=== PATIENT | male | born 1995 | race Two or more races ===

== ENCOUNTER 2020-04-16 06:45 | Emergency (ER) | payer OTHER ==
[~2020-04-16] VITALS: Ht 182.9 cm; Wt 139.7 kg
== END 2020-04-16 12:56 | disposition home or self-care (01) ==
LOC: ER 06:45
DX: U07.1 COVID-19 (principal); R50.9 Fever, unspecified

== ENCOUNTER 2020-04-18 22:03 | Inpatient (IN) | payer OTHER ==
[~2020-04-18] VITALS: Ht 193 cm; Wt 139.7 kg
[2020-04-18] MEDS ORDERED: TYLENOL325 MG (22:21)
[2020-04-18] MEDS ORDERED: VITAMIN C500 M1 (22:21)
[2020-04-26] MEDS ORDERED: DECADRON4 MG PO (15:39)
== END 2020-04-26 17:00 | disposition home or self-care (01) | DRG 177 ==
LOC: ER 22:03 → MEDJ 04-19 13:00 → ICU 04-20 17:33 → MEDJ 04-23 16:23
PROVIDERS: ADMIT Internal Medicine; ATTEND Internal Medicine
PROC: 4A033R1 Measurement of Arterial Saturation, Peripheral, Percutaneous Approach (ICD-10-PCS; principal; 2020-04-19)
PROC: 3E0F7SF Introduction of Other Gas into Respiratory Tract, Via Natural or Artificial Opening (ICD-10-PCS; 2020-04-19)
PROC: 8E0ZXY6 Isolation (ICD-10-PCS; 2020-04-19)
PROC: CB2YYZZ Tomographic (Tomo) Nuclear Medicine Imaging of Respiratory System using Other Radionuclide (ICD-10-PCS; 2020-04-19)
PROC: XW033E5 Introduction of Remdesivir Anti-infective into Peripheral Vein, Percutaneous Approach, New Technology Group 5 (ICD-10-PCS; 2020-04-20)
PROC: 4A12X4Z Monitoring of Cardiac Electrical Activity, External Approach (ICD-10-PCS; 2020-04-23)
DX: U07.1 COVID-19 (principal); J12.82 Pneumonia due to coronavirus disease 2019; R78.81 Bacteremia; R09.02 Hypoxemia; Z20.822 Contact with and (suspected) exposure to COVID-19; E66.01 Morbid (severe) obesity due to excess calories; R03.0 Elevated blood-pressure reading, without diagnosis of hypertension; E55.9 Vitamin D deficiency, unspecified; B95.7 Other staphylococcus as the cause of diseases classified elsewhere